=== PATIENT | male | born 1985 | race Native Hawaiian/Other Pacific Islander ===

== ENCOUNTER 2018-10-12 11:48 | Emergency (ER) ==
[2018-10-12 11:54] VITALS: BP 115/71; TEMP 98.2; BMI 22.4
[2018-10-12] MEDS ORDERED: TENIVAC IM ONE (12:22)
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
== END 2018-10-12 12:40 | disposition home or self-care (01) ==
LOC: ED 11:48
DX: S05.01XA Injury of conjunctiva and corneal abrasion without foreign body, right eye, initial encounter (principal)
CPT/HCPCS: 90471; 90714; 99282